=== PATIENT | male | born 1970 | race Hispanic/Latino ===

== ENCOUNTER 2023-09-15 10:54 | Emergency (ER) | payer BC ==
[2023-09-15] MEDS ORDERED: NA CHLORIDE 0.9% 1,000 ML ONE (11:49)
[2023-09-15] MEDS ORDERED: PANTOPRAZOLE 40 MG INJ ONE ×2 (11:49→11:50)
[2023-09-15 12:03] LABS: Absolute Eosinophils 0.1 K/uL (0-0.5); Absolute Lymphocytes (CBC) 1.2 K/uL (0.7-4.9); Absolute Monocytes 0.9 K/uL (0.1-1.3); Absolute Neutrophil 6.4 K/uL (1.8-8.0); Basophils % 0.5 % (0-1.3); Eosinophils % 0.8 % (0-4.4); Hematocrit 37.7 % (39.6-49.0); Hemoglobin 12.9 g/dL (13.6-17.9); Lymphocytes % 13.5 % (15.3-44.8); MCH 33.6 pg (27.0-35.0); MCHC 34.2 g/dL (32.0-36.0); MPV 7.4 fL (7.6-11.3); Monocytes % 10.9 % (3.3-12.3); Neutrophils % 74.3 % (41.7-73.7); Nucleated Red Blood Cells % 0.5 % (0-0); Platelets 246 thou/uL (152-406); RBC Red Blood Cell Count 3.84 M/uL (4.33-5.43); Red Cell Distribution Width 13.8 % (12.1-15.2)
[2023-09-15 12:07] LABS: Protime INR 1.09
[2023-09-15 12:22] LABS: Albumin 3.6 g/dL (3.4-5.0); Albumin/Globulin Ratio 1.1 (1.1-1.8); Anion Gap 10.3 mEq/L (5.0-15.0); Globulin 3.3 g/dL (2.3-3.5); Potassium 3.3 mEq/L (3.5-5.1); Protein, Total 6.9 g/dL (6.4-8.2); Troponin High Sensitivity 13.3 pg/mL (<58.9)
--- NOTE | 2023-09-15 14:00 | RAD REPORT ---
EXAM DESCRIPTION: CT - Abdomen Pelvis W Contrast - 09/15/2023 1:03 pm CLINICAL HISTORY: ab pain, melena COMPARISON: No comparisons TECHNIQUE: Thin cut axial CT imaging of the abdomen and pelvis was performed following intravenous a dministration of 100 mL Isovue 300. Multiplanar reformats were generated and reviewed. All CT scans are performed using dose optimization technique as appropriate and may include automated exposure control or mA/KV adjustment according to patient size. FINDINGS: No suspicious findings in the lung bases. The liver, spleen, adrenal glands, and pancreas show no suspicious findings. Gallbladder and biliary tree are also without suspicious finding. Symmetric renal function is seen with no hydronephrosis or suspicious renal mass. No dilated bowel loops or bowel wall thickening. Right common iliac vein stent in place. No free air, free fluid or inflammatory stranding. No hernia, mass or bulky lymphadenopathy. The urinary bladder is without significant finding. No suspicious bony findings. IMPRESSION: No acute intra-abdominal process. Incidental findings as above.
--- NOTE | 2023-09-15 14:33 | EDPHYS ---
Physician Documentation [facility] Name: Jayson Acevedo Age: 53 yrs Sex: Male : 1970 Arrival Date: 09/15/2023 Time: 10:54 Bed 3 Private MD: ED Physician Louis Brown HPI: 09/14 14:34 This 53 yrs old Male presents to ER via Ambulatory with complaints of rt Black/Tarry Stools, Dizziness. 14:34 Patient presents to the ED with black, tarry stools for about 2 days. Reports rt dizziness, weakness. Denies nausea, vomiting. Denies other acute complaints at this time, symptoms are moderate in severity, no other aggravating or alleviating factors.. Historical: - Allergies: 11:21 No Known Allergies; iw - Home Meds: 11:21 lisinopril 40 mg Oral tablet daily [Active]; iw 11:22 clamoxin (tramadol/ketorolac) [Active]; iw - PMHx: 11:21 Hypertensive disorder; iw 11:22 Arthritis; iw 11:23 DVT; iw - PSHx: 11:22 None; iw - Immunization history:: Adult Immunizations not up to date. - Infectious Disease History:: Denies. - Social history:: Smoking status: Patient denies any tobacco usage or history of. Patient uses. - Family history:: not pertinent. ROS: 14:34 Constitutional: Negative for fever, chills, and weight loss, Cardiovascular: Negative rt for chest pain, palpitations, and edema, Respiratory: Negative for shortness of breath, cough, wheezing, and pleuritic chest pain, MS/Extremity: Negative for injury and deformity, Skin: Negative for injury, rash, and discoloration, Psych: Negative for depression, anxiety, suicide ideation, homicidal ideation, and hallucinations, 14:34 Abdomen/GI: Positive for Melena, negative for vomiting, 14:34 Neuro: Positive for dizziness, Negative for loss of consciousness, Exam: 14:34 Constitutional: This is a well developed, well nourished patient who is awake, alert, rt and in no acute distress. Head/Face: Normocephalic, atraumatic. Chest/axilla: Normal chest wall appearance and motion. Nontender with no deformity. No lesions are appreciated. Cardiovascular: Regular rate and rhythm with a normal S1 and S2. No gallops, murmurs, or rubs. Normal PMI, no JVD. No pulse deficits. Respiratory: Lungs have equal breath sounds bilaterally, clear to auscultation and percussion. No rales, rhonchi or wheezes noted. No increased work of breathing, no retractions or nasal flaring. Abdomen/GI: Soft, non-tender, with normal bowel sounds. No distension or tympany. No guarding or rebound. No evidence of tenderness throughout. Skin: Warm, dry with normal turgor. Normal color with no rashes, no lesions, and no evidence of cellulitis. MS/ Extremity: Pulses equal, no cyanosis. Neurovascular intact. Full, normal range of motion. Neuro: Awake and alert, GCS 15, oriented to person, place, time, and situation. Cranial nerves II-XII grossly intact. Motor strength 5/5 in all extremities. Sensory grossly intact. Cerebellar exam normal. Normal gait. 14:34 ECG was reviewed by the Attending Physician. Vital Signs: 11:19 BP 119 / 88; Pulse 116; Resp 16; Temp 97; Pulse Ox 93% on R/A; Weight 122.02 kg; Height iw 5 ft. 9 in. ; 13:08 BP 139 / 81; Pulse 100; Resp 16; Pulse Ox 97% ; bp 14:00 BP 140 / 86; Pulse 96; Resp 18; Pulse Ox 99% ; db 14:48 BP 127 / 94; Pulse 97; Resp 15; Pulse Ox 96% ; bp 11:19 Body Mass Index 39.73 (122.02 kg, 175.26 cm) iw MDM: 11:30 Patient medically screened. rt 14:44 Differential diagnosis: Upper GI bleed, anemia. Data reviewed: vital signs, nurses rt notes, lab test result(s), EKG, radiologic studies. Consideration of Admission/Observation Escalation of care including admission/observation considered. Management of patient was discussed with the following: Anode Crew Supervisor: Discussed with men's swim coach on-call, arrange for follow-up tomorrow for EGD.. I considered the following discharge prescriptions or medication management in the emergency department Medications were administered in the Emergency Department. See MAR. Independent interpretation of the following test(s) in the Emergency Department CT Scan: My interpretation is No bowel obstruction seen mitral rotation of CT scan images. Care significantly affected by the following chronic conditions: Hypertension. Counseling: I had a detailed discussion with the patient and/or guardian regarding the historical points, exam findings, and any diagnostic results supporting the discharge/admit diagnosis, lab results, radiology results, the need for outpatient follow up, to return to the emergency department if symptoms worsen or persist or if there are any questions or concerns that arise at home. Response to treatment: the patient's symptoms have mildly improved after treatment. 09/14 11:38 Order name: CBC with Diff; Complete Time: 13:10 rt 09/14 11:38 Order name: CMP; Complete Time: 13: rt 09/14 11:38 Order name: Lipase; Complete Time: 13: rt 09/14 11:38 Order name: PT-INR; Complete Time: 13: rt 09/14 11:38 Order name: Type And Screen; Complete Time: 13: rt 09/14 11:38 Order name: Troponin High Sensitivity; Complete Time: 13: rt 09/14 11:38 Order name: CT Abd/Pelvis - IV Contrast Only; Complete Time: 14:01 rt 09/14 11:38 Order name: IV Saline Lock; Complete Time: 11:55 rt 09/14 11:38 Order name: Labs collected and sent; Complete Time: 11:55 rt 09/14 11:38 Order name: EKG - Nurse/Tech; Complete Time: 11:47 rt EC:34 Rate is 112 beats/min. Rhythm is regular, Sinus tachycardia with No ectopy. QRS [place] is rt Normal. MI interval is normal. QRS interval is normal. QT interval is normal. No Q waves. T waves are Normal. No ST changes noted. Interpreted by me. Administered Medications: 11:54 Drug: Pantoprazole IVP 80 mg IVP once Route: IVP; Site: right forearm; bp 14:49 Follow up: Response: No adverse reaction bp 11:55 Drug: NS 0.9% IV 1000 ml IV at 1 bolus Per protocol; 1000 mL bolus Route: IV; Rate: 1 bp bolus; Site: right forearm; 14:49 Follow up: IV Status: Completed infusion; IV Intake: 1000ml bp Disposition Summary: 09/15/23 14:32 Discharge Ordered Notes: Location: Home rt Problem: new rt Symptoms: are unchanged rt Condition: Stable rt Diagnosis - Melena rt Followup: rt - With: Kranthi Agarwal MD - When: Tomorrow - Reason: Discharge Instructions: - Discharge Summary Sheet rt - Gastrointestinal Bleeding rt Forms: - Work release form bp - Medication Reconciliation Form rt - Antibiotic Education rt - Prescription Opioid Use rt - Patient Portal Instructions rt - Leadership Thank You Letter rt Prescriptions: - Protonix 40 mg Oral Tablet - take 1 tablet ORAL route once daily; 30 tablet; Refills: 0, Product Selection rt Permitted Signatures: Dispatcher [employer] Ludmila Lowe RN RN iw Derrell Yadav RN RN bp [place], Ryan, MD MD rt
--- NOTE | 2023-09-15 14:33 | ER ---
Nurse's Notes [facility] Name: Jayson Acevedo Age: 53 yrs Sex: Male : 1970 Arrival Date: 09/15/2023 Time: 10:54 Bed 3 Private MD: Diagnosis: Melena Presentation: 09/14 11:19 Chief complaint: Patient states: has had black stools X 2 days, feeling weak and dizzy, iw noticed some spots on his legs over the past two days, used to drink daily stopped a month ago , denies any liver issues. Coronavirus screen: At this time, the client does not indicate any symptoms associated with coronavirus-19. Ebola Screen: Patient negative for fever greater than or equal to 101.5 degrees Fahrenheit, and additional compatible Ebola Virus Disease symptoms Patient denies exposure to infectious person. Patient denies travel to an Ebola-affected area in the 21 days before illness onset. No symptoms or risks identified at this time. Risk Assessment: Do you want to hurt yourself or someone else? Patient reports no desire to harm self or others. 11:19 Method Of Arrival: Ambulatory iw 11:19 Acuity: JEFFY 3 iw 11:23 Initial Sepsis Screen: Does the patient meet any 2 criteria? No. Patient's initial iw sepsis screen is negative. Does the patient have a suspected source of infection? No. Patient's initial sepsis screen is negative. Onset of symptoms was September 13, 2023. 11:23 Acuity: JEFFY 2 iw Triage Assessment: 11:20 General: Appears in no apparent distress. obese, Behavior is calm, cooperative, bp appropriate for age. Pain: Denies pain. Neuro: Level of Consciousness is awake, alert, obeys commands, Oriented to Appropriate for age. GI: Reports bloody stool. Historical: - Allergies: 11:21 No Known Allergies; iw - Home Meds: 11:21 lisinopril 40 mg Oral tablet daily [Active]; iw 11:22 clamoxin (tramadol/ketorolac) [Active]; iw - PMHx: 11:21 Hypertensive disorder; iw 11:22 Arthritis; iw 11:23 DVT; iw - PSHx: 11:22 None; iw - Immunization history:: Adult Immunizations not up to date. - Infectious Disease History:: Denies. - Social history:: Smoking status: Patient denies any tobacco usage or history of. Patient uses. - Family history:: not pertinent. Screenin:22 [facility] ED Fall Risk Assessment (Adult) History of falling in the last 3 months, bp including since admission No falls in past 3 months (0 pts). Abuse screen: Denies threats or abuse. Denies injuries from another. Nutritional screening: No deficits noted. Tuberculosis screening: No symptoms or risk factors identified. Assessment: 11:20 General: Appears in no apparent distress. obese, Behavior is calm, cooperative, bp appropriate for age. Pain: Denies pain. Neuro: Reports dizziness. GI: Reports bloody stool. 13:09 Reassessment: No changes from previously documented assessment. Patient is alert, bp oriented x 3, equal unlabored respirations, skin warm/dry/pink. 14:22 Reassessment: Patient appears in no apparent distress at this time. Patient is alert, bp oriented x 3, equal unlabored respirations, skin warm/dry/pink. Vital Signs: 11:19 BP 119 / 88; Pulse 116; Resp 16; Temp 97; Pulse Ox 93% on R/A; Weight 122.02 kg; Height iw 5 ft. 9 in. ; 13:08 BP 139 / 81; Pulse 100; Resp 16; Pulse Ox 97% ; bp 14:00 BP 140 / 86; Pulse 96; Resp 18; Pulse Ox 99% ; db 14:48 BP 127 / 94; Pulse 97; Resp 15; Pulse Ox 96% ; bp 11:19 Body Mass Index 39.73 (122.02 kg, 175.26 cm) iw ED Course: 10:57 Patient arrived in ED. mr 10:59 Louis Brown MD is Attending Physician. rt 11:21 Triage completed. iw 11:23 Arm band placed on. iw 11:26 Derrell Yadav, RN is Primary Nurse. bp 11:26 Patient placed in an exam room, on a stretcher. ll1 11:54 Troponin High Sensitivity Sent. bp 11:55 Type And Screen Sent. bp 11:55 PT-INR Sent. bp 11:55 Lipase Sent. bp 11:55 CMP Sent. bp 11:55 CBC with Diff Sent. bp 11:55 Initial lab(s) drawn, by me, sent to lab. EKG done, by ED staff, reviewed by Louis Brown MD. Inserted saline lock: 20 gauge in right forearm, using aseptic technique. Blood collected. 13:04 CT Abd/Pelvis - IV Contrast Only In Process Unspecified. EDMS 14:22 Patient has correct armband on for positive identification. bp 14:32 Kranthi Agarwal MD is Referral Physician. rt 14:48 No provider procedures requiring assistance completed. IV discontinued, intact, bp bleeding controlled, No redness/swelling at site. Pressure dressing applied. 14:49 Provided Education on: n/a. bp Administered Medications: 11:54 Drug: Pantoprazole IVP 80 mg IVP once Route: IVP; Site: right forearm; bp 14:49 Follow up: Response: No adverse reaction bp 11:55 Drug: NS 0.9% IV 1000 ml IV at 1 bolus Per protocol; 1000 mL bolus Route: IV; Rate: 1 bp bolus; Site: right forearm; 14:49 Follow up: IV Status: Completed infusion; IV Intake: 1000ml bp Medication: 14:49 VIS not applicable for this client. bp Intake: 14:49 IV: 1000ml; Total: 1000ml. bp Outcome: 14:32 Discharge ordered by MD. rt 14:48 Discharged to home ambulatory, with family, bp 14:48 Condition: stable 14:48 Discharge instructions given to patient, Instructed on discharge instructions, follow up and referral plans. Demonstrated understanding of instructions, follow-up care, 14:58 Patient left the ED. bp Signatures: Dispatcher [employer] EDCT Joan Pate, Reg Reg Ludmila Luis RN RN iw Derrell Yadav RN RN bp Lewis, Lynsay, RN RN ll1 Oksana Howe RN RN db Louis Brown MD MD rt Corrections: (The following items were deleted from the chart) 11:22 11:19 BP 119 / 88; Pulse 77bpm; Resp 16bpm; Pulse Ox 93% RA; Temp 97F; 122.02 kg; iw Height 5 ft. 9 in.; BMI: 39.7; iw
[2023-09-15 15:37] VITALS: BP 127/94; TEMP 97; O2SAT 96
--- NOTE | 2023-09-19 13:11 | EKG ---
Test Date: 2023-09-15 Test Time: 11:43:42 Learning Support Aide: AARON MEASUREMENT RESULTS: Intervals: Rate: 112 ID: [id number] QRSD: 80 QT: 328 QTc: 447 [place]: P: 35 ID: [id number] QRS: 14 T: 57 INTERPRETIVE STATEMENTS: Sinus tachycardia Otherwise normal ECG No previous ECG available for comparison Electronically Signed On 09-19-23 12:59:39 CDT by Milo Burgos
== END 2023-09-15 14:58 | disposition home or self-care (01) ==
LOC: ER 10:54
DX: K92.1 Melena (principal); R42 Dizziness and giddiness; I10 Essential (primary) hypertension; Z86.718 Personal history of other venous thrombosis and embolism
CPT/HCPCS: 93005; 85025; 36415; 86900; 86850; 85610; 86901; 84484; 83690; 80053; 74177; Q9967; C9113 ×2; J7030